=== PATIENT | female | born 1960 | race Caucasian/White ===

== ENCOUNTER → 2017-05-17 | Outpatient (CLI) | payer OTHER ==
[~2017-05-17] MED LIST: ALLEGRA60 MG PO; CYMBALTA 60MG60 MG PO; DYAZIDE 25 MG-31 CAP PO; GLUCOPHAGE500 MG/TAB PO; HCTZ; LEVOTHYROXINE PO; SYNTHROID 0.10.15 MG PO; VICODIN 5/5001 UDTAB PO; VITAMIN D 400400 IU PO; ZANTAC; ZOCOR 20MG20 MG PO
== END ==
LOC: MC.RAD 11:00
DX: Z12.31 Encounter for screening mammogram for malignant neoplasm of breast (principal)

== ENCOUNTER → 2018-07-21 | Outpatient (CLI) | payer OTHER ==
[~2018-07-21] MED LIST changes: +DOXYCYCLINE 10100 MG PO
== END ==
LOC: MC.RAD 10:20
DX: Z12.31 Encounter for screening mammogram for malignant neoplasm of breast (principal)

== ENCOUNTER → 2019-11-20 | Outpatient (CLI) | payer BC, OTHER | LOC: COL.RAD 11-19 10:30 | DX: H93.11 Tinnitus, right ear (principal); H81.13 Benign paroxysmal vertigo, bilateral; S83.281A Other tear of lateral meniscus, current injury, right knee, initial encounter; M22.41 Chondromalacia patellae, right knee; M17.11 Unilateral primary osteoarthritis, right knee | CPT/HCPCS: A9585 ==

== ENCOUNTER 2020-03-23 02:45 | Emergency (ER) | payer BC, OTHER ==
[~2020-03-23] VITALS: Ht 165.1 cm; Wt 116.4 kg
[2020-03-23 02:51] VITALS: TEMP 98.2
[2020-03-23] MEDS ORDERED: WELLBUTRIN 75MG75 MG PO (03:02)
[2020-03-23] MEDS ORDERED: OMEGA-3 1000 MG1 CAP PO (03:02)
[2020-03-23] MEDS ORDERED: LEVOXYL0.025 MG PO (03:02)
[2020-03-23] MEDS ORDERED: SOLODYN45 MG PO (03:03)
[2020-03-23 03:59] LABS: COLLECTION METHOD CATHETER
[2020-03-23 04:02] LABS: BASO # 0.1 (0.0-0.2); EOS # 0.2 (0.0-0.7); EOS % 2.9 % (0-4.0); GRAN # 5.4 (1.4-6.5); GRAN % 65.7 % (42.2-75.2); HEMATOCRIT 42.8 % (37.0-47.0); HEMOGLOBIN 13.4 g/dl (12.5-16.0); LYMPH # 1.7 (1.2-3.4); LYMPH % 21.3 % (20.0-51.0); MEAN CELL VOLUME 92 fl (80.0-100.0); MEAN CORPUSCULAR HEMOGLOBIN 29 pg (27.0-31.0); MEAN CORPUSCULAR HGB CONC 31 g/dl (33.0-37.0); MEAN PLATELET VOLUME 10.9 fl (7.4-10.4); MONO # 0.7 (0.1-0.6); MONO % 8.6 % (1.7-9.3); PLATELET COUNT 294 K/mm3 (130-400); RED BLOOD COUNT 4.64 M/mm3 (4.10-5.30); REDCELL DISTRIBUTION WIDTH-CV 15.9 % (11.5-14.5)
[2020-03-23 04:09] LABS: MUCOUS Present /lpf; PH 5 (5-8); SQUAMOUS EPITHELIAL 0-2 /hpf; URINE APPEARANCE Hazy; URINE BACTERIA None Seen /hpf; URINE BILIRUBIN Negative (NEGATIVE); URINE BLOOD Negative (NEGATIVE); URINE COLOR Yellow; URINE GLUCOSE Negative (NEGATIVE); URINE KETONE Negative (NEGATIVE); URINE LEUKOCYTE ESTERASE 1+ (NEGATIVE); URINE NITRATE Negative (NEGATIVE); URINE PROTEIN(semi-quant) Negative (NEGATIVE)
[2020-03-23 04:12] LABS: ALBUMIN 4.2 gm/dL (3.5-5.0); BILIRUBIN,TOTAL 0.4 mg/dL (0.0-1.0); CALCIUM 9.1 mg/dL (8.4-10.2); CREATININE, serum 0.77 (0.52-1.25); POTASSIUM 4.2 mmol/L (3.4-5.0); TOTAL PROTEIN 8.5 gm/dL (6.4-8.2)
[2020-03-23] MEDS ORDERED: NORCO 325 MG-51 TAB PO (05:24)
[2020-03-23] MEDS ORDERED: CEPHALEXIN500 M1 PO (05:24)
[2020-03-23] MEDS ORDERED: ZOFRAN 4MG T4 MG/TAB PO (05:24)
[2020-03-23 05:37] VITALS: BP 142/89; PULSE 72
== END 2020-03-23 05:58 | disposition home or self-care (01) ==
LOC: COL.ER 02:45
PROVIDERS: Emergency Medicine
DX: N39.0 Urinary tract infection, site not specified (principal); I10 Essential (primary) hypertension; E03.9 Hypothyroidism, unspecified; E66.9 Obesity, unspecified; Z90.710 Acquired absence of both cervix and uterus; Z90.49 Acquired absence of other specified parts of digestive tract; Z79.890 Hormone replacement therapy; Z68.41 Body mass index [BMI] 40.0-44.9, adult
CPT/HCPCS: J0696; J2270; J7030; Q9967

== ENCOUNTER → 2020-04-28 | Outpatient (CLI) | payer BC, OTHER ==
[~2020-04-28] VITALS: Ht 165.1 cm; Wt 118.1 kg
[2020-04-28] VITALS (14 sets, daily range): BP systolic 130–169; BP diastolic 72–99; PULSE 68–88
[~2020-04-28] MED LIST changes: +ANTIVERT 12.512.5 MG PO; +ASPIRIN E.C. 8181 MG PO; +CEPHALEXIN500 M1 PO; +LEVOXYL0.025 MG PO; +LEVOXYL0.125 MG PO; +LYRICA 75MG CAP75 MG PO; +NORCO 325 MG-51 TAB PO; +OMEGA-3 1000 MG1 CAP PO; +ONE-A-DAY ESSE1 EACH PO; +PRIL40 PO; +SOLODYN45 MG PO; +VESICARE 5MG5 MG PO; +VITAMIND3 5000 PO; +WELLBUTRIN 75MG75 MG PO; +WELLBUTRIN XL300 M1 PO; +ZOFRAN 4MG T4 MG/TAB PO
--- NOTE | 2020-04-28 11:40 | NUR ---
pt positioned on ct table in supine position. Monitors applied. O2 on at 2l/nc.
--- NOTE | 2020-04-28 13:30 | NUR ---
Dr Umanzor into room talks with pt regarding procedure. Pt currently in wheelchair. Explains procedure to pt.
--- NOTE | 2020-04-28 14:11 | NUR ---
Specimens obtained by Dr Umanzor and placed in formalin. Specimen labeled.
--- NOTE | 2020-04-28 15:45 | NUR ---
Pt attempting to reach ride home.
--- NOTE | 2020-04-28 16:03 | NUR ---
Pt out to car per wheelchair. Pts ride here to pick her up. Pt up and into vehicle without difficulty.
== END ==
LOC: COL.RAD
DX: R59.0 Localized enlarged lymph nodes (principal)
CPT/HCPCS: J3010

== ENCOUNTER 2021-10-19 10:49 | Emergency (ER) | payer OTHER ==
[~2021-10-19] VITALS: Ht 162.6 cm; Wt 118.6 kg
[2021-10-19 11:26] VITALS: BP 140/93
[2021-10-19 11:27] LABS: COLLECTION METHOD CLEAN CATCH
[2021-10-19 11:42] LABS: MUCOUS Present (NOT PRESENT); PH 6 (5-8); URINE APPEARANCE Cloudy (CLEAR/HAZY); URINE BACTERIA Rare /hpf (NONE SEEN); URINE BILIRUBIN Negative (NEGATIVE); URINE BLOOD Negative (NEGATIVE); URINE COLOR Yellow (YELLOW); URINE GLUCOSE Negative (NEGATIVE); URINE KETONE Negative (NEGATIVE); URINE LEUKOCYTE ESTERASE Negative (NEGATIVE); URINE NITRATE Negative (NEGATIVE); URINE PROTEIN(semi-quant) Negative (NEGATIVE); URINE RBC 0-2 /hpf (0-2); URINE UROBILINOGEN Negative (NEGATIVE)
[2021-10-19 11:56] LABS: BASO # 0.1 K/mm3 (0.0-0.2); BASO % 1.1 % (0.0-2.0); EOS % 0.4 % (0.0-4.0); GRAN # 2.8 K/mm3 (1.4-6.5); GRAN % 61.2 % (42.2-75.2); HEMOGLOBIN 12.1 g/dl (12.5-16.0); LYMPH # 1.1 K/mm3 (1.2-3.4); LYMPH % 23.2 % (20.0-51.0); MEAN CELL VOLUME 96 fl (80.0-100.0); MEAN CORPUSCULAR HEMOGLOBIN 31 pg (27-31); MEAN CORPUSCULAR HGB CONC 32 g/dl (33.0-37.0); MONO # 0.6 K/mm3 (0.1-0.6); MONO % 13.7 % (1.7-9.3); PLATELET COUNT 155 K/mm3 (130-400); RED BLOOD COUNT 3.94 M/mm3 (4.10-5.30); REDCELL DISTRIBUTION WIDTH-CV 15.9 % (11.5-14.5)
[2021-10-19] MEDS ORDERED: ATARAX 10MG10 MG/TAB PO (12:00)
[2021-10-19 12:33] LABS: BILIRUBIN,TOTAL 0.8 mg/dL (0.2-1.2); C-REACTIVE PROTEIN 3.99 mg/dL (0.00-0.50); CALCIUM 8.5 mg/dL (8.4-10.2); CREATININE, serum 0.95 mg/dL (0.57-1.11); POTASSIUM 3.6 mmol/L (3.5-4.5)
[2021-10-19 13:22] VITALS: PULSE 80; TEMP 98.7
== END 2021-10-19 13:40 | disposition home or self-care (01) ==
LOC: COL.ER 10:49
PROVIDERS: Emergency Medicine; Nurse Practitioner Primary Care
DX: U07.1 COVID-19 (principal); F32.A Depression, unspecified; E03.9 Hypothyroidism, unspecified; M79.7 Fibromyalgia; Z79.890 Hormone replacement therapy; Z79.899 Other long term (current) drug therapy
CPT/HCPCS: J2405; J7030

== ENCOUNTER 2021-12-04 11:05 | Inpatient (IN) | payer OTHER ==
[~2021-12-04] VITALS: Ht 162.6 cm; Wt 116.9 kg
[2021-12-04] VITALS (258 sets, daily range): BP systolic 93–105; BP diastolic 50–83; PULSE 101–106; TEMP 97.6–98.3; O2SAT 85–100
[~2021-12-04 11:05] MED LIST changes: +ATARAX 10MG10 MG/TAB PO
[2021-12-04 11:40] LABS: BASO # 0.1 K/mm3 (0.0-0.2); BASO % 1.1 % (0.0-2.0); EOS # 0.2 K/mm3 (0.0-0.7); EOS % 2.5 % (0.0-4.0); GRAN # 6.5 K/mm3 (1.4-6.5); HEMATOCRIT 39.3 % (37.0-47.0); HEMOGLOBIN 12.5 g/dl (12.5-16.0); LYMPH # 1.2 K/mm3 (1.2-3.4); LYMPH % 13.6 % (20.0-51.0); MEAN CELL VOLUME 98 fl (80.0-100.0); MEAN CORPUSCULAR HEMOGLOBIN 31 pg (27-31); MEAN CORPUSCULAR HGB CONC 32 g/dl (33.0-37.0); MEAN PLATELET VOLUME 10.9 fl (7.4-10.4); MONO # 0.8 K/mm3 (0.1-0.6); MONO % 8.6 % (1.7-9.3); PLATELET COUNT 202 K/mm3 (130-400); RED BLOOD COUNT 4.02 M/mm3 (4.10-5.30)
[2021-12-04 11:54] LABS: ALBUMIN 3.6 gm/dL (3.4-4.8); BILIRUBIN,TOTAL 0.8 mg/dL (0.2-1.2); CALCIUM 8.6 mg/dL (8.4-10.2); CREATININE, serum 0.95 mg/dL (0.57-1.11); POTASSIUM 3.6 mmol/L (3.5-4.5); TOTAL PROTEIN 7.8 gm/dL (6.2-8.1)
[2021-12-04 12:02] LABS: TROPONIN-I 0.058 ng/mL (0.00-0.033)
[2021-12-04 12:25] LABS: INR 1.2 (0.8-3.0); PROTHROMBIN TIME 13.5 SECONDS (9.7-12.8)
[2021-12-04] MEDS ORDERED: CEPHALEXIN500 M1 PO (15:53)
[2021-12-04] MEDS ORDERED: DESYREL 50MG50 MG PO (15:53)
[2021-12-04] MEDS ORDERED: WELLBUTRIN XL300 M1 PO (15:54)
[2021-12-04] MEDS ORDERED: LASIX 20MG TABL20 MG PO (17:19)
--- NOTE | 2021-12-04 18:32 | NUR ---
ASSUMED CARE OF PATIENT AFTER RECEIVING REPORT FROM ER. PATIENT ABLE TO MOVE FROM STRETCHER TO BED WITH MINIMAL ASSISTANCE. ADMISSION HX AND ASSESSMENT COMPLETED. VSS. HEPARIN PROTOCOL INITIATED. NO QUESTIONS OR CONCERNS AT THIS TIME. WILL CONTINUE TO MONITOR
--- NOTE | 2021-12-04 19:00 | NUR ---
Received report from LOUIE Keenan and LOUIE Navarro.
--- NOTE | 2021-12-04 19:30 | NUR ---
Patient eating dinner at this time. She is alert, oriented, and follows verbal commands. Receiving 2L oxygen via nasal cannula, satting low 90s. Other vitals within normal limits. Heparin drip on standby at this time due to prior HepXa greater than 2; redraw pending for 1999. Patient reports mild chest tightness rated 2/10. She denies needing intervention from staff for pain management.
[2021-12-05] VITALS (763 sets, daily range): BP systolic 105–149; BP diastolic 64–108; PULSE 86–97; TEMP 97.7–99.3; O2SAT 81–100
--- NOTE | 2021-12-05 01:11 | NUR ---
Per patient and her spouse, a contractor in [place], the [facility] has been contacted regarding the patient's admission to the ICU. Case # [id number].
[2021-12-05 05:39] LABS: BASO # 0.1 K/mm3 (0.0-0.2); BASO % 0.9 % (0.0-2.0); EOS # 0.1 K/mm3 (0.0-0.7); EOS % 1.2 % (0.0-4.0); GRAN # 5.2 K/mm3 (1.4-6.5); GRAN % 63.1 % (42.2-75.2); HEMOGLOBIN 11.2 g/dl (12.5-16.0); LYMPH # 2.1 K/mm3 (1.2-3.4); MEAN CELL VOLUME 99 fl (80.0-100.0); MEAN CORPUSCULAR HEMOGLOBIN 31 pg (27-31); MEAN CORPUSCULAR HGB CONC 32 g/dl (33.0-37.0); MEAN PLATELET VOLUME 11.2 fl (7.4-10.4); MONO # 0.8 K/mm3 (0.1-0.6); MONO % 9.4 % (1.7-9.3); PLATELET COUNT 196 K/mm3 (130-400); RED BLOOD COUNT 3.59 M/mm3 (4.10-5.30); REDCELL DISTRIBUTION WIDTH-CV 16.4 % (11.5-14.5)
[2021-12-05 05:42] LABS: HEMATOCRIT 35.4 % (37.0-47.0)
[2021-12-05 05:57] LABS: CALCIUM 8.7 mg/dL (8.4-10.2); CREATININE, serum 0.95 mg/dL (0.57-1.11); MAGNESIUM 2.3 mg/dL (1.6-2.6); POTASSIUM 3.7 mmol/L (3.5-4.5)
[2021-12-05 06:08] LABS: TROPONIN-I 0.542 ng/mL (0.00-0.033)
--- NOTE | 2021-12-05 08:18 | NUR ---
BEDSIDE REPORT RECEIVED FROM LOUIE RYAN. PT IS CURRENTLY HAVING A BILATERAL VENOUS DUPLEX OF LOWER EXTREMITIES DONE AT THIS TIME. PT LIES SUPINE AND OFFERS NO COMPLAINTS. 20G PIV TO RIGHT HAND AND LEFT AC; BOTH CLEAN, DRY, AND INTACT. SEE GTT FLOW SHEET FOR INFUSIONS. VITAL SIGNS STABLE.
--- NOTE | 2021-12-05 09:23 | NUR ---
SW and SW student met with the patient to discuss discharge plan. The patient lives in [place] with her ttmbtk-[id number] old grandson, Noe Pulido (ph#[phone]), and bdnjmlqle-lnoi-fsd granddaughter, Osiel Joseph. She reports independence with ADLs and has a cane and walker. She states that she always felt like she could need some assistance with bathing. The patient's PCP is Dr. Becky Navarro and she receives her medications from [facility], where they are free and also utilizes [facility]. She reports that she has difficulties affording her meds, when they are not from [facility]. She states that her car broke down, so she is not able to drive to [facility] to get meds from them right now. The patient does not have a DPOA-HC, but she was interested in obtaining a form. SW provided. The patient states that she is still legally , but her and her are seperated. Her is Mike Pulido and he has been living in [place] for the past 15-16 years. She states that he will returning back home this week. The patient then has two children: Lalito Reddy (ph#[phone], [place]) and Debbie Degroot. SW informed the patient how her is still her legal next of kin, since they are not . The patient verbalized understanding. The patient plans on returning home with her grandchildren upon discharge. She states that they were actually in the process of moving to a new place in [place], before being admitted. She states that their new place is all one level. SW to ask for PT/OT to be ordered. SW to continue to monitor. *Discharge plan: home with grandchildren*
--- NOTE | 2021-12-05 10:15 | NUR ---
HEPARIN GTT PUT ON HOLD AT THIS TIME TIME PER DR. ROTH ORDER. PT WILL BE HAVING IVC FILTER PLACED AT 1100 AND HEPARIN GTT WILL BE RESUMED ONCE PROCEDURE IS COMPLETE.
--- NOTE | 2021-12-05 11:27 | NUR ---
PT TAKEN TO CASH APPLICATIONS CLERK FOR IVC FILTER PLACEMENT AT THIS TIME.
--- NOTE | 2021-12-05 11:53 | NUR ---
SEE MERGE FOR FOR ALL MEDICATION ADMINISTRATION TIMES/DOSAGES AND INTRA/POST PROCEDURE SEDATION ASSESSMENTS.
--- NOTE | 2021-12-05 19:42 | NUR ---
HEPARIN GTT D/C'D AT THIS TIME PER DR. ROTH'S ORDER.
[2021-12-06] VITALS (696 sets, daily range): BP systolic 96–134; BP diastolic 69–106; PULSE 87–99; TEMP 97.5–98.3; O2SAT 76–100
[2021-12-06 06:40] LABS: HEMOGLOBIN 11.1 g/dl (12.5-16.0); MEAN CELL VOLUME 97 fl (80.0-100.0); MEAN CORPUSCULAR HEMOGLOBIN 32 pg (27-31); MEAN CORPUSCULAR HGB CONC 33 g/dl (33.0-37.0); MEAN PLATELET VOLUME 11.2 fl (7.4-10.4); PLATELET COUNT 198 K/mm3 (130-400); REDCELL DISTRIBUTION WIDTH-CV 16.6 % (11.5-14.5)
[2021-12-06 06:41] LABS: HEMATOCRIT 33.8 % (37.0-47.0)
[2021-12-06 06:53] LABS: CALCIUM 8.8 mg/dL (8.4-10.2); CREATININE, serum 0.85 mg/dL (0.57-1.11); POTASSIUM 3.2 mmol/L (3.5-4.5)
--- NOTE | 2021-12-06 10:45 | NUR ---
PT notified SW that the patient would benefit from home health, if interested. SW met with the patient to address PT's recommendation. The patient reports that she would be interested in home health. SW provided her with Medicare.gov's list of home health agencies in the [facility]. SW also informed her that with her insurance, [employer], we will have to inquire if the agency is in-network or if she would have any hxs-ny-ewwyci costs. The patient verbalized understanding and was agreeable to try [facility]. The patient reports that the doctor told her she may be able to discharge tomorrow. She remains on 2 liters of oxygen. SW consulted Financial Counseling for an FAA. The patient may also need assistance for medications, if not getting them from [facility]. MARCO attempted to contact Ofelia at [facility]. MARCO left her a voicemail and faxed over the referral. Awaiting screen. *Discharge plan: home with home health*
--- NOTE | 2021-12-06 11:43 | NUR ---
Ofelia, at [facility], reports that the patient's insurance is qhd-ex-nlvafea with them and the patient does not have [id number] benefits. They were unable to give her agencies that are in-network. SW faxed referrals to [facility], [facility], and [facility]. Awaiting screens.
--- NOTE | 2021-12-06 11:47 | NUR ---
Social Work student faxed home health referrals to [facility], and [facility].
--- NOTE | 2021-12-06 12:56 | NUR ---
Louisa, at [facility], states that they take the patient's insurance; but due to their census, they would be unable to take the patient with that insurance at this time.
--- NOTE | 2021-12-06 13:01 | NUR ---
MARCO faxed referrals to the last two home health agencies on Medicare.gov's list of home health agencies that serve [place]: [facility] and [facility]. Awaiting screens.
--- NOTE | 2021-12-06 13:45 | NUR ---
PATIENT RESTING IN CHAIR AT THIS TIME. VISITORS X 2 IN ROOM. PATIENT SMILING AND LAUGHING WHILE CONVERSING. NO SIGNS OF DISCOMFORT NOTED. PATIENT TRANSFERS TO COMMODE WITH STANDBY ASSIST, STEADY GAIT NOTED.
--- NOTE | 2021-12-06 16:30 | NUR ---
PATIENT CALLS TO NOTIFY THIS RN OF LOOSE BOWEL MOVEMENT. PATIENT STATES HISTORY OF IRRITABLE BOWEL SYNDROME AND HAS NOT TAKEN PRESCRIBED MEDICATION SINCE ADMISSION. PATIENT DECLINES THIS RN'S OFFER TO OBTAIN ORDER FOR IBS MEDICATION AND STATES "I DON'T NEED IT BECAUSE I'M GOING HOME TOMORROW." THIS RN ASKED PATIENT TO NOTIFY RN TO OBTAIN ORDER IF LOOSE BOWEL MOVEMENTS CONTINUE. PATIENT STATES UNDERSTANDING.
--- NOTE | 2021-12-06 18:53 | NUR ---
PATIENT UP TO COMMODE, EDUCATION PROVIDED REGARDING NEED TO CALL RN TO ASSIST WITH POSITIONING. PERSONAL CARE ITEMS AT BEDSIDE, ORAL CARE PERFORMED AND FACE WASHED.
--- NOTE | 2021-12-06 19:00 | NUR ---
PT RESTING IN BED. VSS. PT DENIES NEEDS AT THIS TIME. WILL CONITNUE TO MOTNIOR.
[2021-12-07] VITALS (278 sets, daily range): BP systolic 128–139; BP diastolic 79–91; PULSE 66–82; TEMP 97.8–99; O2SAT 86–100
[2021-12-07 05:34] LABS: BASO # 0.1 K/mm3 (0.0-0.2); BASO % 1.2 % (0.0-2.0); EOS # 0.4 K/mm3 (0.0-0.7); EOS % 5.8 % (0.0-4.0); GRAN # 3.4 K/mm3 (1.4-6.5); GRAN % 55.5 % (42.2-75.2); HEMOGLOBIN 10.1 g/dl (12.5-16.0); LYMPH # 1.7 K/mm3 (1.2-3.4); LYMPH % 27.3 % (20.0-51.0); MEAN CELL VOLUME 98 fl (80.0-100.0); MEAN CORPUSCULAR HEMOGLOBIN 31 pg (27-31); MEAN CORPUSCULAR HGB CONC 32 g/dl (33.0-37.0); MONO # 0.6 K/mm3 (0.1-0.6); MONO % 9.9 % (1.7-9.3); PLATELET COUNT 195 K/mm3 (130-400); RED BLOOD COUNT 3.22 M/mm3 (4.10-5.30); REDCELL DISTRIBUTION WIDTH-CV 16.3 % (11.5-14.5)
[2021-12-07 05:39] LABS: HEMATOCRIT 31.4 % (37.0-47.0)
[2021-12-07 05:47] LABS: CALCIUM 8.4 mg/dL (8.4-10.2); CREATININE, serum 0.89 mg/dL (0.57-1.11); POTASSIUM 3.8 mmol/L (3.5-4.5)
--- NOTE | 2021-12-07 07:00 | NUR ---
BEDSIDE REPORT RECEIVED FROM LOUIE LEE. PT HAD A GOOD NIGHT AND WAS ABLE TO SLEEP FOR MOST OF IT. NO MEDICATIONS INFUSING. 22G PIV TO RIGHT HAND. 20G PIV TO LEFT FA. VITAL SIGNS WITHIN NORMAL LIMITS. PT OFFERS NO COMPLAINTS.
--- NOTE | 2021-12-07 08:16 | NUR ---
Irene, at [facility], report that they do take the patient's insurance.
[2021-12-07] MEDS ORDERED: ELIQUIS 5MG PO (09:04)
[2021-12-07] MEDS ORDERED: PROAIR HFA0.09 MG/AC IH (09:07)
--- NOTE | 2021-12-07 09:13 | NUR ---
FAMILY HAS DECIDED THAT THEY ARE READY TO WITHDRAWL CARE. DR. HERNADEZ AT BEDSIDE INACTIVATING PACEMAKER AND ICD.
--- NOTE | 2021-12-07 10:14 | NUR ---
[facility] reports that they do not take the patient's insurance. Therese, at [facility], reports that they are not in contract with the patient's insurance. Ree, at [facility], reports that they are able to accept the patient. The clinical team is ready to discharge the patient today. The pharmacist notified MARCO that they will be discharging the patient on Eliquis. MARCO met with the patient to review discharge plan and inform of [facility] accepting. The patient is agreeable to the plan. She states that she has a lot of other prescriptions that need to be refilled, so she will want to and try and see about her daughter taking her to [place] to getting her prescriptions and the Eliquis. An exercise oximetry was ordered. RT notified MARCO that the patient did not qualify for oxygen. The patient is to discharge back home with her grandchildren today, 12/07, with home health services for mcc/PT/OT from [facility]. MARCO notified and faxed orders to Ree at [facility]. SW updated the patient's daughter, Lalito. Lalito states that she will be here at 1200 to forklift picker the patient. SW informed the patient's RN. No additional needs at this time.
--- NOTE | 2021-12-07 12:30 | NUR ---
PT DC'D TO HOME AND IS ACCOMPANIED BY DAUGHTER AND GRANDSON. PIV'S REMOVED FROM LEFT FA AND RIGHT HAND. PT WAS ABLE TO DRESS INDEPENDENTLY. VITAL SIGNS WITHIN NORMAL LIMITS. PT ESCORTED TO DAUGHTERS VEHICLE IN WHEELCHAIR.
== END 2021-12-07 12:30 | disposition home health service (06) | DRG 175 ==
LOC: COL.ER 11:05 → ICU 15:31
PROVIDERS: Family Medicine; Physician Assistant; ADMIT Internal Medicine
DX: I26.92 Saddle embolus of pulmonary artery without acute cor pulmonale (principal); J96.01 Acute respiratory failure with hypoxia; I21.A1 Myocardial infarction type 2; I82.4Z1 Acute embolism and thrombosis of unspecified deep veins of right distal lower extremity; Z68.42 Body mass index [BMI] 45.0-49.9, adult; I51.9 Heart disease, unspecified; E78.5 Hyperlipidemia, unspecified; E03.9 Hypothyroidism, unspecified; K21.9 Gastro-esophageal reflux disease without esophagitis; N32.81 Overactive bladder; M79.7 Fibromyalgia; Z66 Do not resuscitate; E66.9 Obesity, unspecified; G47.33 Obstructive sleep apnea (adult) (pediatric); M19.90 Unspecified osteoarthritis, unspecified site; F41.9 Anxiety disorder, unspecified; I45.10 Unspecified right bundle-branch block; Z20.822 Contact with and (suspected) exposure to COVID-19; Z85.42 Personal history of malignant neoplasm of other parts of uterus; Z87.891 Personal history of nicotine dependence; Z79.82 Long term (current) use of aspirin
CPT/HCPCS: 99223-AI; 99231-AI; 99232-AI; 99239; C1880; C1894; J1644; J1940; J2250; J3010; J7120; Q9967

== ENCOUNTER → 2021-12-13 | Outpatient (CLI) | payer OTHER ==
[~2021-12-13] MED LIST changes: +DESYREL 50MG50 MG PO; +ELIQUIS 5MG PO; +LASIX 20MG TABL20 MG PO; +PROAIR HFA0.09 MG/AC IH
== END ==
LOC: MC.RAD 15:24
DX: I26.92 Saddle embolus of pulmonary artery without acute cor pulmonale (principal); R92.0 Mammographic microcalcification found on diagnostic imaging of breast

== ENCOUNTER → 2021-12-20 | Outpatient (CLI) | payer OTHER | LOC: COL.RAD 12-14 10:30 | DX: I26.92 Saddle embolus of pulmonary artery without acute cor pulmonale (principal); R59.0 Localized enlarged lymph nodes | CPT/HCPCS: Q9967 ==

== ENCOUNTER → 2022-06-20 | Outpatient (CLI) | payer OTHER | LOC: MC.RAD 09:57 | DX: N63.20 Unspecified lump in the left breast, unspecified quadrant (principal) ==

== ENCOUNTER 2022-11-17 20:55 | Emergency (ER) | payer OTHER ==
[~2022-11-17] VITALS: Ht 165.1 cm; Wt 118.6 kg
[2022-11-17] MEDS ORDERED: LYRICA 150MG C150 MG PO (21:20)
[2022-11-17] MEDS ORDERED: CYMBALTA 30MG30 MG PO (21:21)
[2022-11-17] MEDS ORDERED: MELATONIN ER10 MG PO (21:22)
[2022-11-17 21:46] LABS: BASO # 0.1 K/mm3 (0.0-0.2); BASO % 1.3 % (0.0-2.0); EOS # 0.8 K/mm3 (0.0-0.7); EOS % 9.3 % (0.0-4.0); GRAN # 5.7 K/mm3 (1.4-6.5); HEMOGLOBIN 11.6 g/dl (12.5-16.0); LYMPH # 1.4 K/mm3 (1.2-3.4); MEAN CELL VOLUME 93 fl (80.0-100.0); MEAN CORPUSCULAR HEMOGLOBIN 30 pg (27-31); MEAN CORPUSCULAR HGB CONC 32 g/dl (33.0-37.0); MEAN PLATELET VOLUME 9.7 fl (7.4-10.4); MONO # 0.6 K/mm3 (0.1-0.6); MONO % 6.4 % (1.7-9.3); PLATELET COUNT 308 K/mm3 (130-400); RED BLOOD COUNT 3.84 M/mm3 (4.10-5.30); REDCELL DISTRIBUTION WIDTH-CV 14.8 % (11.5-14.5)
[2022-11-17 21:47] LABS: HEMATOCRIT 35.8 % (37.0-47.0)
[2022-11-17 21:50] LABS: ALBUMIN 2.8 gm/dL (3.4-4.8); ALKALINE PHOSPHATASE 92 U/L (40-150); ANION GAP 13 mmol/L (7-16); AST,SGOT 12 U/L (5-34); BILIRUBIN,TOTAL 0.7 mg/dL (0.2-1.2); BLOOD UREA NITROGEN 7 mg/dL (10-20); CALCIUM 8.6 mg/dL (8.4-10.2); CARBON DIOXIDE 27 mmol/L (23-31); CHLORIDE 96 mmol/L (98-107); CREATININE, serum 0.88 mg/dL (0.57-1.11); GLUCOSE 136 mg/dL (70-99); POTASSIUM 3.1 mmol/L (3.5-4.5); SODIUM 136 mmol/L (136-145)
[2022-11-17 21:53] LABS: ALANINE AMINOTRANSFERASE < 6 U/L (0-55)
[2022-11-17 21:58] LABS: TROPONIN-I < 0.010 ng/mL (0.00-0.033)
[2022-11-17 23:50] VITALS: BP 137/90; PULSE 85; TEMP 96.5
== END 2022-11-17 23:55 | disposition home or self-care (01) ==
LOC: COL.ER 20:55
PROVIDERS: Emergency Medicine
DX: E03.9 Hypothyroidism, unspecified (principal); E87.6 Hypokalemia; D64.9 Anemia, unspecified; Z87.891 Personal history of nicotine dependence; Z20.822 Contact with and (suspected) exposure to COVID-19